=== PATIENT | male | born 1970 | race Caucasian/White ===

== ENCOUNTER 2018-12-20 10:12 | Day surgery (SDC) | payer MEDICAID ==
[~2018-12-20] VITALS: Ht 172.7 cm; Wt 93.0 kg
[2018-12-20] MEDS ORDERED: MIDAZOLAM 2 MG/2 ML VIAL ONE (11:51)
[2018-12-20] MEDS ORDERED: MIDAZOLAM 2 MG/2 ML VIAL IVP ONE (12:15)
--- NOTE | 2018-12-20 12:28 | NUR ---
Low Fat Diet smalll meals antiacid as needed will call with gastric biopsy if positive Follow up with PCP Addendum: 12/20/18 at 1228 by Leda Alvarez RN Amended: Links added.
== END 2018-12-20 12:40 | disposition home or self-care (01) ==
LOC: MDS 10:12 → MMU 10:12 → MDS 12:40
PROVIDERS: ATTEND Internal Medicine Gastroenterology
DX: K31.7 Polyp of stomach and duodenum (principal); K21.9 Gastro-esophageal reflux disease without esophagitis; E66.9 Obesity, unspecified; Z68.31 Body mass index [BMI] 31.0-31.9, adult; Z79.899 Other long term (current) drug therapy
CPT/HCPCS: 36415; 43239; 86677; J2250